=== PATIENT | male | born 1965 | race Two or more races ===

== ENCOUNTER 2023-03-06 12:53 | Emergency (ER) | payer SELFPAY ==
[~2023-03-06] VITALS: Ht 170.2 cm; Wt 81.8 kg
[2023-03-06] MEDS ORDERED: DOXY-1 PO (13:47)
[2023-03-06] MEDS ORDERED: bacitracin 15gm ointment TP ONE (13:50)
[2023-03-06] MEDS ORDERED: TETanus/Pertussis (Acell)/Diphther VAC/PF (Tdap-Adult) 0.5ml syringe IMVAC ONE (13:50)
[2023-03-06] MEDS ORDERED: DOXYCYCLINE 100MG CAPSULE PO STA (13:51)
[2023-03-06] MEDS ORDERED: LIDOcaine 1% 30ml preserv. free vial IJ ONE (13:51)
[2023-03-06 15:31] VITALS: BP 131/84
== END 2023-03-06 15:35 | disposition home or self-care (01) ==
LOC: ER 12:54
DX: S61.012A Laceration without foreign body of left thumb without damage to nail, initial encounter (principal); I10 Essential (primary) hypertension; Z79.899 Other long term (current) drug therapy; X58.XXXA Exposure to other specified factors, initial encounter; Y93.89 Activity, other specified; Y92.89 Other specified places as the place of occurrence of the external cause; Y99.8 Other external cause status
CPT/HCPCS: 12001; 90471; 90715; 99283

== ENCOUNTER 2025-02-08 08:35 | Emergency (ER) | payer MEDICAID ==
[~2025-02-08] VITALS: Ht 172.7 cm; Wt 77.3 kg
[2025-02-08 11:17] VITALS: RESP 14
[2025-02-08] MEDS ORDERED: PROM118S5 PO (13:52)
[2025-02-08] MEDS ORDERED: CIPR-208 PO (13:52)
[2025-02-08] MEDS ORDERED: ALBU8HFA INH (13:52)
[2025-02-08 14:25] VITALS: BP 104/62; PULSE 60; TEMP 98.8; O2SAT 96
== END 2025-02-08 14:28 | disposition home or self-care (01) ==
LOC: ER 08:36
DX: J20.9 Acute bronchitis, unspecified (principal); R09.1 Pleurisy; I10 Essential (primary) hypertension
CPT/HCPCS: 71045; 93005; 99283